=== PATIENT | female | born 1970 | race Caucasian/White ===

== ENCOUNTER 2023-12-09 09:08 | Emergency (ER) | payer OTHER ==
[~2023-12-09] VITALS: Ht 144.8 cm; Wt 54.4 kg
[2023-12-09 09:15] VITALS: BP 148/85; PULSE 86; RESP 20; TEMP 98.3; O2SAT 98
[2023-12-09 09:44] VITALS: O2SAT 98
[2023-12-09 10:24] LABS: BASOPHILS # (AUTO) 0.1 K/uL (0.00-0.22); BASOPHILS % (AUTO) 0.5 % (0.0-2.0); EOSINOPHILS % (AUTO) 0.1 % (0.0-4.0); HEMATOCRIT 40.6 % (36-48); HEMOGLOBIN 13.8 g/dL (12.0-16.0); LYMPHOCYTES # (AUTO) 1.3 K/uL (2.5-16.5); LYMPHOCYTES % (AUTO) 11.9 % (20.5-51.1); MEAN CORPUSCULAR HEMOGLOBIN 30 pg (27-31); MEAN CORPUSCULAR HGB CONC 34 g/dL (33-37); MEAN CORPUSCULAR VOLUME 89.2 fL (80-94); MONOCYTES # (AUTO) 0.3 K/uL (0.8-1.0); MONOCYTES % (AUTO) 2.7 % (1.7-9.3); NEUTROPHILS % (AUTO) 84.8 % (42.2-75.2); PLATELET COUNT (AUTO) 295 K/uL (140-450); RED BLOOD CELL COUNT(AUTO) 4.55 MIL/uL (4.20-5.40); RED CELL DISTRIBUTION WIDTH 13.9 % (11.6-13.7); WHITE BLOOD COUNT (AUTO) 10.7 K/uL (4.8-10.8)
[2023-12-09] MEDS: ALUMINUM HYD/MAG/SIMETHICONE 30 ML UDC PO ONE (10:27)
[2023-12-09] MEDS: FAMOTIDINE 20 MG TAB PO ONE (10:27)
[2023-12-09] MEDS: ONDANSETRON 4 MG ODT PO ONE (10:28)
[2023-12-09 10:47] LABS: ALANINE AMINOTRANSFERASE 380 U/L (12-78); ALBUMIN 3.8 g/dL (3.4-5.0); ALKALINE PHOSPHATASE 148 U/L (50-136); ASPARTATE AMINOTRANSFERASE 388 U/L (15-37); BILIRUBIN,DIRECT 0.4 mg/dL (0.0-0.3); LIPASE 47 U/L (16-77); TOTAL BILIRUBIN 0.6 mg/dL (0.0-1.0); TOTAL PROTEIN, SERUM 7.9 g/dL (6.4-8.2)
[2023-12-09 11:00] LABS: ANION GAP 15.2 (8-16); CARBON DIOXIDE 26.9 mmol/L (21-32); POTASSIUM 4.1 mmol/L (3.5-5.1)
[2023-12-09 11:20] LABS: CALCIUM 9.4 mg/dL (8.5-10.1); CREATININE 0.8 mg/dL (0.6-1.3)
[2023-12-09] MEDS ORDERED: IBUP-2213 PO (13:09)
[2023-12-09 13:11] VITALS: O2SAT 98
[2023-12-09 13:18] VITALS: BP 142/82; PULSE 82; RESP 17; TEMP 98.3; O2SAT 98
== END 2023-12-09 13:20 | disposition home or self-care (01) ==
LOC: MED 09:08
DX: K80.70 Calculus of gallbladder and bile duct without cholecystitis without obstruction (principal); R74.01 Elevation of levels of liver transaminase levels
CPT/HCPCS: 36415; 71045; 76705; 80048; 80076; 81025; 83690; 84484; 85025; 93005; 99285; Q0092; Q0162